=== PATIENT | female | born 1945 | race Caucasian/White ===

== ENCOUNTER 2017-04-30 08:53 | Outpatient (RCR) | payer MEDICARE ==
[~2017-04-30 08:53] MED LIST: IBUPROFEN600 MG PO; NORCO 5-325 TA1 EACH ORAL
== END 2017-05-04 | disposition home or self-care (01) ==
LOC: PTY 08:53
PROVIDERS: ATTEND Internal Medicine
DX: M89.8X1 Other specified disorders of bone, shoulder (principal); M54.2 Cervicalgia; M79.601 Pain in right arm
CPT/HCPCS: 97110; 97161; G0283; G8984; G8985

== ENCOUNTER 2017-05-29 11:00 | Outpatient (RCR) | payer MEDICARE | END 2017-06-04 | disposition home or self-care (01) | LOC: PTY 11:00 | PROVIDERS: ATTEND Internal Medicine | DX: M89.8X1 Other specified disorders of bone, shoulder (principal); M54.2 Cervicalgia; M79.601 Pain in right arm ==

== ENCOUNTER 2017-06-24 14:26 | Outpatient (RCR) | payer MEDICARE | END 2017-07-04 | disposition home or self-care (01) | LOC: PTY 14:26 | PROVIDERS: ATTEND Internal Medicine | DX: M25.511 Pain in right shoulder (principal); M89.8X1 Other specified disorders of bone, shoulder; M54.2 Cervicalgia; M79.601 Pain in right arm | CPT/HCPCS: G8985; G8986 ==